=== PATIENT | male | born 1990 ===

== ENCOUNTER → 2022-05-17 08:52 | Outpatient (BNVA) | payer OTHER, MEDICAID, SELFPAY | PROVIDERS: PCP Physician Assistant; Visit Provider Nurse Practitioner Family | DX: R06.81 Apnea, not elsewhere classified (principal); R40.0 Somnolence; R06.83 Snoring | CPT/HCPCS: 99202 ==

== ENCOUNTER → 2022-05-23 08:45 | Outpatient (REF) | payer OTHER, SELFPAY | LOC: HO.SL 08:45 | PROVIDERS: Visit Provider Nurse Practitioner Family | DX: G47.33 Obstructive sleep apnea (adult) (pediatric) (principal); R40.0 Somnolence; R06.83 Snoring | CPT/HCPCS: 95806 ==

== ENCOUNTER → 2022-07-13 19:30 | Outpatient (REF) | payer OTHER, SELFPAY | LOC: HO.SL 19:30 | PROVIDERS: Visit Provider Nurse Practitioner Family | DX: G47.33 Obstructive sleep apnea (adult) (pediatric) (principal) | CPT/HCPCS: 95811 ==

== ENCOUNTER → 2022-11-16 15:32 | Outpatient (BNVA) | payer OTHER, SELFPAY | PROVIDERS: PCP Physician Assistant; Visit Provider Nurse Practitioner Family | DX: G47.33 Obstructive sleep apnea (adult) (pediatric) (principal); Z99.89 Dependence on other enabling machines and devices | CPT/HCPCS: 99212 ==

== ENCOUNTER 2023-06-05 09:37 | Outpatient (AMB) | payer OTHER, SELFPAY ==
--- NOTE | 2023-06-05 09:39 | MHC.OFFVIS ---
Intake Vital Signs 06/05/23 09:40 Height 5 ft 8 in Weight 248 lb BMI 37.7 BP 112/72 Blood Pressure Location Rt brachial Position Sitting Pulse 65 Pulse Source Pulse Oximeter Pulse Oximetry (%) 98 Oxygen Delivery Method Room Air Intake Visit Reasons: 6 mo f/u-EVANGELINA - LVM Intake Note: Patient presents for 6 month follow up EVANGELINA Allergies No Known Allergies Allergy (Verified 06/05/23 09:41) HPI HPI Comments History of Present Illness Details 32 y/o male patient presents for follow up of EVANGELINA on CPAP. Pt's baseline home sleep study result was significant for severe degree of sleep apnea. The total AHI was 67/hr and oxygen tyrone was 63%. He started CPAP at [id number]. The CPAP compliance and therapy response (02/25/23-05/25/23) reviewed with the patient. THe usage days 79% and the average usage hours 6 hrs. The AHI was 0.9/hr. Pt reports that he had severe nasal congestion and could not use CPAP regularly. He noticed that he is less tired and not falling asleep during days anymore. He also lost about 40 lb since November, goes to gym daily for an hour. FORMERLY [facility], [facility] Surgical History History of carpal tunnel surgery Family History Father No problems noted. Mother Diabetes Social History Household Members: None Alcohol intake: current Alcohol intake frequency: a few times a month Alcohol type: wine Patient Tobacco Use Status: Never used Tobacco Current occupational status: employed Current occupation: [employer] Review of Systems Const All systems reviewed & are unremarkable except as noted in HPI and below Physical Exam Vital Signs: Last Vital Signs Pulse 65 06/05/23 09:40 BP 112/72 06/05/23 09:40 Pulse Ox 98 06/05/23 09:40 Oxygen Delivery Method Room Air 06/05/23 09:40 BMI result Body Mass Index 37.7 Const Orientation/consciousness: patient oriented x3 HEENT Throat: Yes other (mallampati score 4) Neck Neck: Yes full ROM and Yes supple Resp Effort & Inspection: normal respiratory effort and able to speak in complete sentences Neuro General: patient oriented x3, gait normal, moves all extremities and CN's II-XI intact bilaterally Gait exam (Neuro): Normal gait present Psych Appearance: grossly normal Mental Status: mental status grossly normal Speech and movement: Normal speech and movement present Assessment & Plan Assessment & Plan (1) EVANGELINA (obstructive sleep apnea): Code(s): G47.33 - Obstructive sleep apnea (adult) (pediatric) Plan Continue to use CPAP [id number] as patient experiences good clinical effects. Stressed compliance, use CPAP nightly, more than 4 hours. Continue to do regular exercise and wt reduction advised. Coding Level of Care Code Est Pt Level 3 (39589) Diagnoses EVANGELINA (obstructive sleep apnea) G47.33
[2023-06-05 09:40] VITALS: BP 112/72; PULSE 65; O2SAT 98; BMI 37.7
== END 2023-06-05 09:56 | disposition home or self-care (01) ==
LOC: HO.HSMC 09:37
PROVIDERS: PCP Physician Assistant; Visit Provider Nurse Practitioner Family
DX: G47.33 Obstructive sleep apnea (adult) (pediatric) (principal)
CPT/HCPCS: 99213

== ENCOUNTER → 2023-06-05 09:37 | Outpatient (BNVA) | payer OTHER, SELFPAY | PROVIDERS: PCP Physician Assistant; Visit Provider Nurse Practitioner Family | DX: G47.33 Obstructive sleep apnea (adult) (pediatric) (principal) | CPT/HCPCS: 99212 ==